=== PATIENT | female | born 1985 | race Caucasian/White ===

== ENCOUNTER 2018-04-27 12:21 | Emergency (ER) | payer MEDICAID, OTHER ==
[~2018-04-27] VITALS: Ht 167.6 cm; Wt 53.1 kg
[2018-04-27] MEDS ORDERED: SODIUM CHLORIDE 0.9% 500 ML IVB ONE (12:22)
[2018-04-27] MEDS ORDERED: HALOPERIDOL LACTATE 5 MG/ML INJ VIAL IM ONE (12:30)
[2018-04-27] MEDS ORDERED: diphenhdrAMINE HCL 50 MG/1 ML VL IM ONE (12:30)
[2018-04-27] MEDS ORDERED: LORazepam 2MG/ML-1ML VIAL IM ONE (12:30)
[2018-04-27 12:40] VITALS: BP 126/80
== END 2018-04-27 15:04 | disposition left against medical advice (07) ==
LOC: ER 12:27
DX: F20.9 Schizophrenia, unspecified (principal); F15.10 Other stimulant abuse, uncomplicated; F31.9 Bipolar disorder, unspecified; Z90.89 Acquired absence of other organs; Z53.29 Procedure and treatment not carried out because of patient's decision for other reasons
CPT/HCPCS: 94761

== ENCOUNTER 2018-04-27 18:29 | Emergency (ER) | payer MEDICAID, OTHER ==
[~2018-04-27] VITALS: Ht 167.6 cm; Wt 54.4 kg
[2018-04-27] MEDS ORDERED: LORazepam 2MG/ML-1ML VIAL IM ONE (19:00)
[2018-04-27] MEDS ORDERED: SODIUM CHLORIDE 0.9% 1,000 ML IV ONE (19:15)
[2018-04-27 21:48] LABS: Basophils # (auto) 0.1 uL; Basophils % (auto) 0.4 % (0.0-2.0); Eosinophils # (auto) 0.1 uL; Eosinophils % (auto) 0.5 % (0.0-7.0); Hematocrit 37.2 % (36.0-46.0); Hemoglobin 12.3 g/dL (12.2-16.2); Lymphocytes # (auto) 4.2 uL; Lymphocytes % (auto) 25.5 % (10.0-50.0); Mean Corpuscular Hemoglobin 27.9 pg (28.0-32.0); Mean Corpuscular Volume 84.7 fL (80.0-100.0); Monocytes # (auto) 1.3 uL; Monocytes % (auto) 8.2 % (0.0-12.0); Neutrophils # (auto) 10.7 uL; Neutrophils % (auto) 65.4 % (37.0-80.0); Nucleated Red Blood Cells % 0.1 %; Platelet Count (auto) 381 10^3/uL (140-450); Red Cell Distribution Width 16.4 % (11.8-14.3); White Blood Cell 16.3 10^3/uL (4.4-10.8)
[2018-04-27 22:05] LABS: Salicylate < 1.7 mg/dL (2.8-20.0)
[2018-04-27 22:06] LABS: Alanine Aminotransferase 36 U/L (13-56); Albumin 3.9 g/dL (3.4-5.0); Anion Gap 7 (5-15); Aspartate Aminotransferase 31 U/L (15-37); BUN/Creatinine Ratio 22.9; Blood Alcohol < 3.0 mg/dL (0-5); Blood Urea Nitrogen 16 mg/dL (7-18); Calcium 9.3 mg/dL (8.5-10.1); Carbon Dioxide 25 mmol/L (21-32); Chloride 107 mmol/L (98-107); GFR African American 124 mL/min; GFR Non-African American 102 mL/min; Glucose 91 mg/dL (74-106); Magnesium 2.4 mg/dL (1.6-2.6); Potassium 3.9 mmol/L (3.5-5.1); Sodium 139 mmol/L (136-145)
[2018-04-27 22:08] LABS: Alkaline Phosphatase 92 U/L (45-117); Bilirubin, Total 1.1 mg/dL (0.2-1.0); Total Protein 6.9 g/dL (6.4-8.2)
[2018-04-27 22:46] LABS: Acetaminophen < 2.0 ug/mL (10-30)
[2018-04-28 01:09] LABS: Alcohol, Urine < 3.0 mg/dL (0-5); Amphetamine Screen, Urine POSITIVE (NEGATIVE); Barbiturate Scree,Urine NEGATIVE (NEGATIVE); Benzodiazephine Screen, Urine NEGATIVE (NEGATIVE); Cannabinoid Screen, Urine NEGATIVE (NEGATIVE); Cocaine Screen, Urine NEGATIVE (NEGATIVE); Opiate Scree,Urine NEGATIVE (NEGATIVE); Phencyclidine Screen, Urine NEGATIVE (NEGATIVE)
[2018-04-28 01:23] LABS: Urine Pregnacy Test Negative (Negative)
[2018-04-28 01:26] LABS: Urine Bacteria MOD /hpf (None Seen); Urine Blood Negative /uL (Negative); Urine Mucus FEW (None Seen); Urine Specific Gravity 1.039 (1.001-1.035); Urine WBC 7 /hpf (0 - 5)
[2018-04-28 06:28] VITALS: BP 132/78
== END 2018-04-28 06:32 | disposition home or self-care (01) ==
LOC: EDBD 18:29 → ER 18:29
DX: F19.959 Other psychoactive substance use, unspecified with psychoactive substance-induced psychotic disorder, unspecified (principal); F20.9 Schizophrenia, unspecified; F15.10 Other stimulant abuse, uncomplicated; Z90.89 Acquired absence of other organs
CPT/HCPCS: 36415; 80053; 80307; 80320; 80329; 81001; 81025; 82550; 83735; 85025